=== PATIENT | male | born 1990 | race Caucasian/White ===

== ENCOUNTER 2018-04-01 22:10 | Inpatient (IN) | payer OTHER ==
[~2018-04-01 22:10] MED LIST: ISOVUE-370 76%-LOCM 1 ML ONE
[2018-04-01] MEDS ORDERED: Morphine 4 MG/ML VIAL ONE (22:19)
--- NOTE | 2018-04-01 23:03 | CT ---
CERVICAL SPINE CT WITHOUT CONTRAST: 04/01/2018 COMPARISON: 01/10/2016 TECHNIQUE: Serial axial CT imaging at 2.5 mm intervals, from the thoracic inlet through the skull base, without contrast. Coronal and sagittal reformatted imaging obtained. FINDINGS: The imaged paranasal sinuses/mastoid air cells are well aerated. The C1 ring is intact. The occipit al condyles, dens, and C1-2 articulation appear within normal limits. No evidence for fracture or di slocation. There is stable anterior wedging of the C7 vertebral body, unchanged since the 2016 [facility]. IMPRESSION: No acute findings. Results called to Dr. Roach at 10:40 p.m. on 04/01/2018. CODE CR POS: [facility]
[2018-04-01 23:04] LABS: #Eosinphils 0.1 thou/uL (0.0-0.7); #Lymphocytes 1.3 thou/uL (1.20-3.40); #Monocytes 1.2 thou/uL (0.11-0.59); #Neutrophils 13.2 thou/uL (1.40-6.50); %Basophils 0.2 % (0.0-1.0); %Eosinophils 0.5 % (0.0-10.0); %Lymphocytes 8.5 % (21.0-51.0); %Monocytes 7.4 % (0.0-10.0); %Neutrophils 83.5 % (42.0-75.0); Hemoglobin 13.8 g/dL (14.0-18.0); Mean Corpuscular HGB CONC 34.6 g/dL (32.0-36.0); Mean Corpuscular Hemoglobin 31.4 pg (27.0-31.0); Mean Corpuscular Volume 90.9 fL (78.0-98.0); Mean Platelet Volume 7.6 fL (7.4-10.4); Platelet Count 248 thou/uL (130-400); RBC Distribution Width 11.1 % (11.5-14.5); Red Blood Cell (RBC) Count 4.38 mill/uL (4.70-6.10); White Blood Cell (WBC) Count 15.8 thou/uL (4.8-10.8)
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
[2018-04-01] MEDS ORDERED: Piperacillin/Tazobactam 4.5 GM VIAL ONE (23:15)
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
[2018-04-01 23:21] LABS: ALT (SGPT) 33 U/L (8-55); AST (SGOT) 28 U/L (5-34); Albumin 4.2 g/dL (3.5-5.0); Alcohol 207 mg/dL (Less than 10); Alkaline Phosphatase 58 U/L (40-150); Anion Gap 14 mmol/L (10-20); BUN (Urea Nitrogen) 9 mg/dL (8.9-20.6); Bilirubin, Total 0.6 mg/dL (0.2-1.2); Calc. Creatinine Clearance 0 mL/min (70-130); Calcium 8.8 mg/dL (7.8-10.44); Carbon Dioxide 21 mmol/L (22-29); Chloride 106 mmol/L (98-107); Estimated GFR-MDRD Greater than 90; Globulin 2.9 g/dL (2.4-3.5); Glucose 112 mg/dL (70-105); Potassium 3.4 mmol/L (3.5-5.1); Protein, Total 7.1 g/dL (6.0-8.3); Sodium 138 mmol/L (136-145)
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
--- NOTE | 2018-04-01 23:25 | RAD ---
FRONTAL RADIOGRAPH CHEST: 04/01/2018 HISTORY: Injury. Trauma. Pain. COMPARISON: None. FINDINGS: Supine imaging limits assessment for pneumothorax and pleural fluid. The lungs appear clear. The he art and mediastinal contour is unremarkable. IMPRESSION: No acute findings. POS: [facility]
--- NOTE | 2018-04-01 23:27 | RAD ---
LEFT RADIUS AND ULNA FRONTAL AND LATERAL IMAGIN04/01/2018 HISTORY: Injury. Trauma. Pain. COMPARISON: None. FINDINGS: There is osseous irregularity involving the scaphoid bone, which could represent a remote scaphoid fr acture. It is not well assessed on this examination, and follow-up dedicated left wrist imaging is a dvised. There is a comminuted, obliquely oriented, mildly displaced fracture involving the proximal left radi al shaft. There is a comminuted, obliquely oriented, and mildly displaced fracture involving the mid shaft left ulna. IMPRESSION: 1. Acute fractures of the proximal/mid shaft, left radius and ulna. 2. Possible old fracture of the scaphoid bone. Dedicated left wrist imaging suggested. POS: [facility]
--- NOTE | 2018-04-01 23:57 | CT ---
CT ANGIOGRAM NECK: TECHNIQUE: Serial axial CT imaging at 1.25 mm intervals, through the neck, with IV contrast, using CT angiogram protocol. Coronal and sagittal 3D reformatted imaging obtained. FINDINGS: The imaged brain parenchyma is unremarkable. The visualized lung apices demonstrate no acute findings. The origin of the innominate artery, right subclavian artery, right vertebral artery, right common ca rotid artery, left common carotid artery, left subclavian artery, and left vertebral artery are unrem arkable. The vertebral arteries are patent bilaterally and demonstrate normal course and caliber. The common carotid artery, internal carotid artery, and external carotid artery are unremarkable bila terally. No hemodynamically significant stenosis is seen, on the basis of NASCET criteria. The retroantral fat and parapharyngeal fat is clear bilaterally. The parotid glands and the submandibular glands appear unremarkable. There are a few punctate foci of gas within the subcutaneous fat, anterior to the sternocleidomastoid muscle on the right. No associated subcutaneous hematoma or vascular injury is seen in this region. No lymphadenopathy is seen. No acute osseous abnormality. IMPRESSION: Arterial structures of the neck appear unremarkable. POS: [facility]
[2018-04-02] MEDS ORDERED: Lidocaine 1% w/Epinephrine 1:100K 20 ML VIAL ONE ×2 (00:23)
[2018-04-02] MEDS ORDERED: Nicotine 14 MG PATCH TOP SCH (00:30)
[2018-04-02] MEDS ORDERED: Bacitracin Zinc 1 Packet ONE (00:50)
[2018-04-02] MEDS ORDERED: Morphine 4 MG/ML VIAL ONE (01:25)
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
[2018-04-02] MEDS ORDERED: Ondansetron HCl/PF 4 MG/2 ML Vial IVP PRN ×2 (02:54→17:31)
[2018-04-02] MEDS ORDERED: Ondansetron ODT 4 MG TAB PO PRN (02:54)
[2018-04-02] MEDS ORDERED: Dextrose 50% Abboject 50 ML SYRINGE SLOW IVP PRN (02:54)
[2018-04-02] MEDS ORDERED: Dextrose 5% in Water 1,000 ML IV PRN (02:54)
[2018-04-02] MEDS ORDERED: hydrALAZINE 20 MG/ML VIAL SLOW IVP PRN (02:54)
[2018-04-02] MEDS ORDERED: Morphine 4 MG/ML VIAL IV PRN (02:54)
[2018-04-02] MEDS: Sodium Chloride 0.9% 1,000 ML IV SCH ×2 (03:13→11:27)
[2018-04-02] MEDS: Morphine 4 MG/ML VIAL IV PRN ×4 (03:29→20:33)
[2018-04-02 04:24] VITALS: BMI 29.6
[2018-04-02] MEDS: Acetaminophen 1,000 MG in Premix Bag 1 BAG IVPB SCH ×3 (05:39→18:52)
[2018-04-02] MEDS: Ketorolac Tromethamine 30 MG/ML VIAL IVP SCH ×3 (05:39→18:37)
[2018-04-02 05:57] LABS: #Lymphocytes 1.4 thou/uL (1.20-3.40); #Monocytes 1.2 thou/uL (0.11-0.59); #Neutrophils 8.2 thou/uL (1.40-6.50); %Basophils 0.1 % (0.0-1.0); %Eosinophils 0.2 % (0.0-10.0); %Lymphocytes 13.1 % (21.0-51.0); %Monocytes 11.4 % (0.0-10.0); %Neutrophils 75.2 % (42.0-75.0); Mean Corpuscular Hemoglobin 31.3 pg (27.0-31.0); Mean Platelet Volume 8.1 fL (7.4-10.4); Platelet Count 236 thou/uL (130-400); RBC Distribution Width 11.2 % (11.5-14.5); Red Blood Cell (RBC) Count 4.48 mill/uL (4.70-6.10); White Blood Cell (WBC) Count 10.9 thou/uL (4.8-10.8)
[2018-04-02 06:10] LABS: Anion Gap 16 mmol/L (10-20); BUN (Urea Nitrogen) 9 mg/dL (8.9-20.6); Calc. Creatinine Clearance 164 mL/min (70-130); Carbon Dioxide 19 mmol/L (22-29); Chloride 107 mmol/L (98-107); Estimated GFR-MDRD Greater than 90; Glucose 110 mg/dL (70-105); Sodium 138 mmol/L (136-145)
[2018-04-02] MEDS: Famotidine 20 MG TAB PO SCH ×2 (08:42→20:33)
[2018-04-02] MEDS ORDERED: CEFAZOLIN/Water 2 GM/20 ML SYRINGE SLOW IVP SCH (10:00)
[2018-04-02] MEDS ORDERED: Metoclopramide HCl 10 MG/2 ML VIAL ONE (11:07)
[2018-04-02] MEDS ORDERED: Lidocaine 1% PF 5 ML VIAL ONE (11:07)
[2018-04-02] MEDS ORDERED: Glycopyrrolate 0.2 MG/ML 5 ML SYRINGE ONE (11:07)
[2018-04-02] MEDS ORDERED: Dexamethasone 20 MG/5 ML VIAL ONE (11:07)
[2018-04-02] MEDS ORDERED: Ondansetron HCl/PF 4 MG/2 ML Vial ONE (11:07)
[2018-04-02] MEDS ORDERED: Ketorolac Tromethamine 30 MG/ML VIAL ONE (11:07)
[2018-04-02] MEDS ORDERED: PROPOFOL 200 MG/20 ML VIAL ONE (11:07)
[2018-04-02] MEDS ORDERED: CEFAZOLIN/Water 2 GM/20 ML SYRINGE ONE (13:21)
[2018-04-02] MEDS ORDERED: Fentanyl 100 MCG/2 ML VIAL ONE ×3 (13:21→17:55)
[2018-04-02] MEDS ORDERED: Fentanyl 250 MCG/5 ML VIAL ONE (13:21)
[2018-04-02] MEDS ORDERED: HYDROmorphone 2 MG/ML VIAL ONE (16:54)
[2018-04-02] MEDS ORDERED: Promethazine HCl 25 MG/ML VIAL SLOW IVP PRN (17:31)
[2018-04-02] MEDS ORDERED: Promethazine HCl 25 MG/ML VIAL IM PRN (17:31)
--- NOTE | 2018-04-02 18:39 | RAD ---
LEFT FOREARM: INDICATIONS: Left forearm images during open reduction and internal fixation procedure. TECHNIQUE: Two fluoroscopic images from the OR were obtained. FINDINGS: Plate and screws transfix the proximal radius and ulna. POS: [facility]
[2018-04-02] MEDS ORDERED: Ibuprofen 600 MG TAB PO PRN (20:31)
[2018-04-02] MEDS ORDERED: traMADol HCl 50 MG TAB PO PRN (20:31)
[2018-04-02] MEDS: CEFAZOLIN/Water 2 GM/20 ML SYRINGE SLOW IVP SCH (20:32)
[2018-04-02] MEDS ORDERED: Nicotine 14 MG PATCH TD SCH (22:00)
[2018-04-02] MEDS: traMADol HCl 50 MG TAB PO PRN (22:11)
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
[2018-04-03] MEDS: Acetaminophen 1,000 MG in Premix Bag 1 BAG IVPB SCH (00:04)
[2018-04-03] MEDS: Ketorolac Tromethamine 30 MG/ML VIAL IVP SCH (00:07)
[2018-04-03] MEDS ORDERED: Acetaminophen 500 MG TAB PO PRN (01:00)
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
[2018-04-03] MEDS: Sodium Chloride 0.9% 1,000 ML IV SCH (01:54)
[2018-04-03] MEDS: Morphine 4 MG/ML VIAL IV PRN ×2 (02:10→07:32)
[2018-04-03] MEDS: traMADol HCl 50 MG TAB PO PRN (04:09)
[2018-04-03] MEDS: CEFAZOLIN/Water 2 GM/20 ML SYRINGE SLOW IVP SCH ×2 (04:09→11:35)
[2018-04-03 07:01] LABS: #Lymphocytes 0.8 thou/uL (1.20-3.40); #Monocytes 0.9 thou/uL (0.11-0.59); #Neutrophils 8.8 thou/uL (1.40-6.50); %Basophils 0.1 % (0.0-1.0); %Eosinophils 0.1 % (0.0-10.0); %Lymphocytes 7.9 % (21.0-51.0); %Monocytes 8.4 % (0.0-10.0); %Neutrophils 83.5 % (42.0-75.0); Hemoglobin 12.5 g/dL (14.0-18.0); Mean Corpuscular Hemoglobin 32.7 pg (27.0-31.0); Mean Corpuscular Volume 93.4 fL (78.0-98.0); Mean Platelet Volume 7.6 fL (7.4-10.4); Platelet Count 198 thou/uL (130-400); Red Blood Cell (RBC) Count 3.82 mill/uL (4.70-6.10); White Blood Cell (WBC) Count 10.5 thou/uL (4.8-10.8)
[2018-04-03] MEDS: Famotidine 20 MG TAB PO SCH (07:38)
[2018-04-03] MEDS ORDERED: Morphine 4 MG/ML VIAL IV PRN (08:54)
[2018-04-03] MEDS ORDERED: traMADol HCl 50 MG TAB PO PRN (08:54)
[2018-04-03] MEDS ORDERED: Senokot S 8.6-50 MG TAB PO SCH (09:00)
[2018-04-03] MEDS ORDERED: Polyethylene Glycol 3350 17 GM Packet PO SCH (09:00)
[2018-04-03] MEDS: Ibuprofen 600 MG TAB PO SCH ×2 (09:56→14:12)
[2018-04-03 11:16] VITALS: BP 133/82; TEMP 98.2
[2018-04-03] MEDS ORDERED: Acetaminophen 500 MG TAB PO SCH (12:00)
[2018-04-03] MEDS ORDERED: traMADol HCl 50 MG TAB PO SCH (12:00)
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
[2018-04-03] MEDS ORDERED: Gabapentin 300 MG CAP PO SCH (15:00)
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
== END 2018-04-03 14:49 | disposition home or self-care (01) | DRG 511 ==
LOC: ERS 22:10 → SJJU 23:56
PROVIDERS: ADMIT Surgery; ATTEND Surgery
PROC: 0PSJ04Z Reposition Left Radius with Internal Fixation Device, Open Approach (ICD-10-PCS; principal; 2018-04-02)
PROC: 0PSL04Z Reposition Left Ulna with Internal Fixation Device, Open Approach (ICD-10-PCS; 2018-04-02)
PROC: 0WQ8XZZ Repair Chest Wall, External Approach (ICD-10-PCS; 2018-04-02)
PROC: 0WQ6XZZ Repair Neck, External Approach (ICD-10-PCS; 2018-04-02)
DX: S52.202A Unspecified fracture of shaft of left ulna, initial encounter for closed fracture (principal); S21.112A Laceration without foreign body of left front wall of thorax without penetration into thoracic cavity, initial encounter; S52.92XA Unspecified fracture of left forearm, initial encounter for closed fracture; V32.5XXA Driver of three-wheeled motor vehicle injured in collision with two- or three-wheeled motor vehicle in traffic accident, initial encounter; S11.91XA Laceration without foreign body of unspecified part of neck, initial encounter
CPT/HCPCS: 36415; 70450; 70498; 71045; 71260; 72125; 72170; 74177; 76001; 80048; 80053; 80307; 85025; 90471; 90686; 96361; 96365; 96375; 96376; C1713; G0008; G0390; G8984-GP-CL; G8985-GP-CJ; G8987-GO-CI; G8988-GO-CI; G8989-GO-CI; J0131; J1100; J1170; J1885; J2001; J2270; J2405; J2543; J2704; J2765; J3010